=== PATIENT | female | born 1975 | race African-American/Black ===

== ENCOUNTER 2023-07-04 15:27 | Emergency (ER) | payer SELFPAY ==
[2023-07-04] MEDS ORDERED: Morphine 4 MG/ML VIAL ONE (16:14)
[2023-07-04] MEDS ORDERED: Ondansetron ODT 4 MG TAB ONE (16:14)
[2023-07-04] MEDS ORDERED: Cyclobenzaprine 10 MG TAB ONE (16:14)
== END 2023-07-04 17:05 | disposition home or self-care (01) ==
LOC: MADERS 15:27
DX: G89.29 Other chronic pain (principal); M54.50 Low back pain, unspecified; M54.2 Cervicalgia; K21.9 Gastro-esophageal reflux disease without esophagitis; I10 Essential (primary) hypertension; Z79.899 Other long term (current) drug therapy; V49.40XA Driver injured in collision with unspecified motor vehicles in traffic accident, initial encounter
CPT/HCPCS: 72100; 72125; 96372; J2270; Q0162